=== PATIENT | female | born 1965 | race Caucasian/White ===

== ENCOUNTER 2019-02-05 11:02 | Day surgery (SDC) | payer MEDICAID ==
[~2019-02-05] VITALS: Ht 167.6 cm; Wt 61.1 kg
[2019-02-05 13:00] VITALS: BP 140/89
[2019-02-05] MEDS ORDERED: [UNRECOGNIZED DRUG - CODE] (13:21)
[2019-02-05] MEDS ORDERED: [UNRECOGNIZED DRUG - CODE] PO (13:21)
[2019-02-05] MEDS ORDERED: BECL7.3A INH (13:21)
[2019-02-05] MEDS ORDERED: FLUT16SP2 BOTHNARES (13:21)
[2019-02-05] MEDS ORDERED: LIPA1CAP18 PO (13:21)
[2019-02-05] MEDS ORDERED: ALBU18HF2 INH (13:21)
[2019-02-05] MEDS ORDERED: ONDA8TAB6 PO (13:21)
[2019-02-05] MEDS ORDERED: DESM0.2T23 PO (13:21)
[2019-02-05] MEDS ORDERED: ESTR1PAT88 (13:21)
[2019-02-05] MEDS ORDERED: DOXY50CA6 PO (13:21)
[2019-02-05] MEDS ORDERED: ORPH100T2 PO (13:21)
[2019-02-05] MEDS ORDERED: ALPR1TAB2 PO (13:21)
[2019-02-05] MEDS ORDERED: HYDR4TAB45 PO (13:21)
[2019-02-05] MEDS ORDERED: TIOT4MIS3 (13:21)
[2019-02-05] MEDS ORDERED: DESM10SP (13:21)
[2019-02-05] MEDS ORDERED: CETI-102 PO (13:21)
[2019-02-05] MEDS ORDERED: heparin sodium, porcine/PF 100unit/ml 5ML syringe ONE (13:59)
--- NOTE | 2019-02-05 14:25 | NUR ---
BHARGAV BUTLER ACCESSED PORT, DRAWS FINE. PROCEDURE CANCELLED. PT DISCHARGED HOME AT 1425. PT HAD ALL BELONGINGS.
== END 2019-02-05 14:20 | disposition home or self-care (01) ==
LOC: SSTAY O 11:02
PROVIDERS: ATTEND Radiology Vascular & Interventional Radiology
DX: K86.1 Other chronic pancreatitis (principal); Z53.8 Procedure and treatment not carried out for other reasons
CPT/HCPCS: J1642